=== PATIENT | male | born 1950 | race Caucasian/White ===

== ENCOUNTER → 2020-01-25 17:51 | Outpatient (CLI) | payer OTHER, SELFPAY | PROVIDERS: PCP Internal Medicine | DX: Z20.828 Contact with and (suspected) exposure to other viral communicable diseases (principal) | CPT/HCPCS: 87635; C9803; U0003 ==

== ENCOUNTER 2020-12-27 18:17 | Observation (INO) | payer MEDICARE, SELFPAY ==
[2020-12-27 18:18] VITALS: BP 133/90; PULSE 111; RESP 18; TEMP 36.9; O2SAT 95; BMI 31.8
[2020-12-27 19:15] LABS: Absolute Lymphocyte Count 1.72 X10^3/uL (0.83-4.51); Absolute Neutrophil Count 8.6 X10^3/uL (2.0-7.7); Basophil# 0.02 X10^3/uL; Basophil% 0.2 % (0-1); Eosinophil# 0.06 X10^3/uL; Eosinophils% 0.5 % (0-5); Hemoglobin 13.2 g/dL (13.0-16.5); Lymphocyte # 1.72 X10^3/ul (0.83-4.51); Lymphocyte % 15.7 % (19-41); Mean Corp Hgb Conc 34.7 g/dL (32-36); Mean Corpuscular Hgb 31.6 pg (27.0-32.0); Mean Corpuscular Volume 90.9 fL (80-94); Monocyte# 0.56 X10^3/uL; Monocyte% 5.1 % (0-10); NRBC Flagged by Analyzer 0 % (0-5); Neutrophil % 78.2 % (47-70); Platelet Count 128 K/mm3 (150-450); RBC Distribution Width CV 12.9 % (11.6-14.6); Red Blood Count 4.18 M/mm3 (4.6-6.2)
[2020-12-27 19:31] LABS: ALB/GLOB Ratio 0.9 RATIO (0.9-2.4); AST(SGOT) 17 U/L (15-37); Alanine Aminotransfer ALT/SGPT 34 U/L (16-61); Albumin, Serum 3.2 g/dL (3.2-5.0); Alkaline Phosphatase 70 U/L (45-117); Anion Gap 5 (5-15); BUN 20 mg/dL (7-18); BUN/Creat Ratio 14.8 RATIO (10-20); Calcium,Total 8.8 mg/dL (8.5-10.1); Chloride 104 mmol/L (98-107); Creatinine, Serum 1.35 mg/dL (0.70-1.30); EST Glomerular Filtration Rate 55 mL/min (>60); Est Glom Filt Rate - Afr Amer 67 mL/min (>60); Estimated Creatinine Clearance 46.92 ml/min; Globulin 3.6 g/dL (2.2-4.2); Glucose 128 mg/dL (74-106); Potassium 3.7 mmol/L (3.5-5.1); Protein, Total 6.8 g/dL (6.4-8.2); Sodium Level 137 mmol/L (136-145)
--- NOTE | 2020-12-27 19:53 | CT_ITS ---
INDICATION: abdominal pain EXAMINATION: CT Abdomen And Pelvis W/ Contrast Injection TECHNIQUE: Helically acquired images were obtained of the abdomen and pelvis after IV contrast. A radiation dose optimization technique was used for this scan. IV Contrast dosage and agent: IV 100mL [id number]-300 Oral contrast: None. COMPARISON: None. FINDINGS: Visualized lung bases: Bibasilar atelectasis. Liver: Diffusely hypodense consistent with fatty liver. Gallbladder: Unremarkable Spleen: Unremarkable Pancreas: Unremarkable Adrenal Glands: Unremarkable Kidneys: 5 mm nonobstructing stones seen in the right upper pole. 3 mm nonobstructing stone seen in the left upper pole. Vasculature: Mild scattered aortoiliac atherosclerotic calcifications. GI Tract: Scattered colonic diverticula. There is short segment circumferential wall thickening of the proximal transverse colon with surrounding mesenteric fat stranding. No focal fluid collection or free air. Lymphadenopathy: None Peritoneum: No ascites. Bladder: Unremarkable Reproductive organs: Unremarkable Bones/Soft tissues: Mild scattered degenerative changes of the visualized spine. CT/Abdomen/Pelvis W IV Cont ONLY IMPRESSION: Acute transverse colon diverticulitis. No focal fluid collection or free air. Bilateral nonobstructing nephrolithiasis. Fatty liver. Electronically Signed: Leonid Todd MD at 21:26 EDT Tel , Service support ,
--- NOTE | 2020-12-27 20:07 | ED.VIS.GI ---
HPI HPI - GI History of Present Illness Chief Complaint: Abd Pain Informant: patient Narrative Narrative: Patient is a 70-year-old male with history of diverticulitis presenting with fever and worsening abdominal pain. Patient states he is developed worsening pain in his epigastric/right right upper quadrant since last night. He has had chills and a temperature of 100.8. He is also had pain in his right shoulder. He denies any cough, shortness of breath, nausea, vomiting, diarrhea or change in his bowel movements. He is never had a colonoscopy. No other complaints at this time. [facility] Medical History (Updated 12/28/20 @ 00:[address] Damaris Knox, DO) Diverticulitis Glaucoma Gout Hyperlipidemia Seizures Home Medications allopurinol 100 mg PO DAILYCM 01/12/14 [History Last Taken 12/26/20 22:00] atorvastatin 20 mg PO QHS 01/12/14 [History Last Taken 12/26/20 22:00] brimonidine 1 drp EACH EYE DAILY 12/27/20 [History Last Taken 12/27/20 08:00] dorzolamide 1 drp EACH EYE DAILY 12/27/20 [History Last Taken 12/27/20 08:00] Allergy/AdvReac Type Severity Reaction Status Date / Time No Known Allergies Allergy Verified 12/27/20 18:20 Surgical History H/O parathyroidectomy Hx of bilateral hip replacements Social History (Updated 12/27/20 @ 21:52 by Ruthie Vasquez NP-C) Smoking Status: Never smoker alcohol intake: current alcohol intake frequency: holidays/special occasions only substance use type: does not use ROS ROS ED Constitutional Constitutional ED: Reports fever(s); Denies chills Eyes Eyes: Denies blurry vision or loss of vision ENT ENT ED: Denies rhinorrhea or sore throat Cardiovascular Cardiovascular: Denies chest pain or dizziness Respiratory/Chest Respiratory/Chest: Denies cough or dyspnea Gastrointestinal Gastrointestinal: Reports abdominal pain; Denies nausea or vomiting Genitourinary Genitourinary ED: Denies dysuria or hematuria Musculoskeletal Musculoskeletal: Denies arthralgias or myalgias Integumentary Denies rash or wounds Neurologic Neurologic: Denies focal weakness or headache(s) Psychiatric Psychiatric: Denies anxiety or behavioral changes EXAM Physical Exam Const Vital Signs: 12/27/20 18:18 Temperature 98.4 F Temperature Source Temporal Pulse Rate 111 H Respiratory Rate 18 Blood Pressure 133/90 H Blood Pressure Mean 104 Pulse Ox 95 Oxygen Delivery Method Room Air Positive well nourished and well developed General Appearance ED: well developed HEENT Reports moist mucous membranes normocephalic and atraumatic Eyes PERRL and EOMs intact bilaterally Neck supple Resp normal respiratory effort and clear to auscultation bilaterally Cardio regular rate, regular rhythm and no murmurs GI Inspection: Negative for abdominal distention Auscultation: normoactive bowel sounds Palpation: soft, tender epigastric and RUQ and guarding RUQ Back/Spine no CVA tenderness Extremity full ROM General Extremety ED: Negative for edema General Extremity: Negative for edema Neuro Sensorium / Orientation: alert Motor Exam: Negative for general weakness Psych mental status grossly normal and thought process normal Skin Lesions: no lesions Rashes: no rashes MDM MDM MDM Narrative Medical decision making narrative: Patient evaluated for about 24 hours of right upper quadrant/epigastric abdominal pain. Started off more diffuse but is localized to the right upper abdomen. Lab work is largely unremarkable. Creatinine is mildly elevated at 1.35, which is slightly above his baseline. He is given IV fluids. Patient declines pain medication. He is tachycardic upon arrival. CT shows acute transverse colon diverticulitis with no free fluid collection or free air. CT interpreted by myself is concerning for possible microperforations. Discussed with general surgery, Dr. Andrade, who does not think this is operative/surgical. Patient is admitted to the medicine service. He is given IV ciprofloxacin and Flagyl in the emergency room. Lab Data Labs: Laboratory Results - last 24 hr 12/27/20 12/27/20 12/27/20 19:03 19:03 19:03 WBC 11.0 RBC 4.18 L Hgb 13.2 Hct 38.0 L MCV 90.9 MCH 31.6 MCHC 34.7 RDW Std Deviation 42.0 RDW Coeff of Kranthi 12.9 Plt Count 128 L MPV 11.0 Immature Gran % (Auto) 0.300 Neut % (Auto) 78.2 H Lymph % (Auto) 15.7 L [place] % (Auto) 5.1 Eos % (Auto) 0.5 Baso % (Auto) 0.2 Absolute Neuts (auto) 8.6 H Absolute Lymphs (auto) 1.72 Nucleated RBC % 0 Sodium 137 Potassium 3.7 Chloride 104 Carbon Dioxide 28.0 Anion Gap 5 BUN 20 H Creatinine 1.35 H Estim Creat Clear Calc 46.92 Est GFR (MDRD) Af Amer 67 Est GFR (MDRD) Non-Af 55 L BUN/Creatinine Ratio 14.8 Glucose 128 H Calcium 8.8 Total Bilirubin 1.60 H AST 17 ALT 34 Alkaline Phosphatase 70 Total Protein 6.8 Albumin 3.2 Globulin 3.6 Albumin/Globulin Ratio 0.9 Lipase 137 Radiography Diagnostic Testing: Radiology Impression Abdomen/Pelvis CT 12/27/20 19:53 IMPRESSION: Acute transverse colon diverticulitis. No focal fluid collection or free air. Bilateral nonobstructing nephrolithiasis. Fatty liver. Electronically Signed: Leonid Todd MD at 21:26 EDT Tel , Service support , Discharge Plan Dx/Rx/DC Orders Clinical Impression: Diverticulitis Disposition Disposition: Acute Care [facility] Discharge Date/Time: 12/27/20 22:30
[2020-12-27 20:09] LABS: Lipase 137 U/L (73-393)
--- NOTE | 2020-12-27 21:47 | PCM.HP.STD ---
Documented by User: DAR Mac 12/27/20 21:59 HPI - General General Date of Admission: 12/27/20 Date of Service: 12/27/20 Chief Complaint: Abdominal pain HPI Narrative DANIELLA CLEMONS, is a 70 M who presents complaints of abdominal pain. Patient states that he had generalized abdominal pain and was seen at the [facility] where he was advised to present to the ER for evaluation for diverticulitis. Patient reports that he has had diverticulitis in the past. Patient states that he had chills and temperature as high as 100.8. Patient denies fever, cough, shortness of breath, chest pain, nausea, vomiting diarrhea, constipation. Patient states medical history includes gout, hyperlipidemia, and glaucoma. [facility] Medical History (Updated 12/27/20 @ 23:04 by Jennifer Shaffer) Diverticulitis Glaucoma Gout Hyperlipidemia Seizures Home Medications allopurinol 100 mg PO DAILYCM 01/12/14 [History Last Taken 12/26/20 22:00] atorvastatin 20 mg PO QHS 01/12/14 [History Last Taken 12/26/20 22:00] brimonidine 1 drp EACH EYE DAILY 12/27/20 [History Last Taken 12/27/20 08:00] dorzolamide 1 drp EACH EYE DAILY 12/27/20 [History Last Taken 12/27/20 08:00] Allergy/AdvReac Type Severity Reaction Status Date / Time No Known Allergies Allergy Verified 12/27/20 18:20 no significant family history Surgical History H/O parathyroidectomy Hx of bilateral hip replacements Social History (Updated 12/27/20 @ 21:52 by Ruthie Vasquez NP-C) Smoking Status: Never smoker alcohol intake: current alcohol intake frequency: holidays/special occasions only substance use type: does not use ROS Constitutional Constitutional: Reports chills and fever(s); Denies anorexia, fatigue, malaise or weakness Cardiovascular Cardiovascular: Denies chest pain, edema or palpitations Respiratory/Chest Respiratory/Chest: Denies cough, shortness of breath at rest or shortness of breath with exertion Gastrointestinal Gastrointestinal: Reports abdominal pain; Denies constipation, diarrhea, nausea or vomiting Genitourinary Genitourinary: Denies dysuria Musculoskeletal Musculoskeletal: Denies back pain, extremity pain, joint pain or joint stiffness Integumentary Integumentary: Denies dry skin Neurologic Neurologic: Denies abnormal gait, abnormal speech, confusion, dizziness or focal weakness Psychiatric Psychiatric: Denies anxiety or depression Endocrine Endocrinology: Denies change in body appearance Hematologic/Lymphatic Hematologic/Lymphatic: Denies anemia Vital Signs Vital Signs Vital Signs: 12/27/20 18:18 Temperature 98.4 F Temperature Source Temporal Pulse Rate 111 H Respiratory Rate 18 Blood Pressure 133/90 H Blood Pressure Mean 104 Pulse Ox 95 Oxygen Delivery Method Room Air Weight Weight: 203 lb 4.259 oz Body Mass Index (BMI) 31.8 Physical Exam Const alert, oriented x3 and no apparent distress General Appearance: cooperative HEENT normocephalic and head/scalp atraumatic Eyes conjunctivae normal and no scleral icterus Neck supple and no JVD General: trachea midline Resp normal respiratory effort, normal air movement and clear to auscultation bilaterally Cardio regular rate, regular rhythm, S1 normal heart sound, S2 normal heart sound and peripheral pulses 2+ throughout GI normal to inspection, nondistended, normoactive bowel sounds and soft to palpation Palpation: tender epigastric and RUQ Extremity normal capillary refill and no clubbing, cyanosis or edema General Extremity: no tenderness to palpation of joints or extremities Skin General Skin Exam: no breakdown and turgor normal Lesions: no lesions Rashes: no rashes Neuro no focal motor deficits and no sensory deficits noted Speech: speech normal Motor Exam: Negative for general weakness Psych thought process normal, cooperative and affect normal Appearance: appropriate Results Lab / Micro Data Result Diagrams: 12/27/20 19:03 12/27/20 19:03 Labs: Laboratory Results - last 24 hr 12/27/20 19:03: WBC 11.0, RBC 4.18 L, Hgb 13.2, Hct 38.0 L, MCV 90.9, MCH 31.6, MCHC 34.7, RDW Std Deviation 42.0, RDW Coeff of Kranthi 12.9, Plt Count 128 L, MPV 11.0, Immature Gran % (Auto) 0.300, Neut % (Auto) 78.2 H, Lymph % (Auto) 15.7 L, [place] % (Auto) 5.1, Eos % (Auto) 0.5, Baso % (Auto) 0.2, Absolute Neuts (auto) 8.6 H, Absolute Lymphs (auto) 1.72, Nucleated RBC % 0 12/27/20 19:03: Sodium 137, Potassium 3.7, Chloride 104, Carbon Dioxide 28.0, Anion Gap 5, BUN 20 H, Creatinine 1.35 H, Estim Creat Clear Calc 46.92, Est GFR (MDRD) Af Amer 67, Est GFR (MDRD) Non-Af 55 L, BUN/Creatinine Ratio 14.8, Glucose 128 H, Calcium 8.8, Total Bilirubin 1.60 H, AST 17, ALT 34, Alkaline Phosphatase 70, Total Protein 6.8, Albumin 3.2, Globulin 3.6, Albumin/Globulin Ratio 0.9 12/27/20 19:03: Lipase 137 Radiology Impression Abdomen/Pelvis CT 12/27/20 19:53 IMPRESSION: Acute transverse colon diverticulitis. No focal fluid collection or free air. Bilateral nonobstructing nephrolithiasis. Fatty liver. Electronically Signed: Leonid Todd MD at 21:26 EDT Tel , Service support , Assessment & Plan Assessment/Plan (1) Diverticulitis: PLAN: 1. Diverticulitis -Admit to MedSurg -Cipro and Flagyl initiated in ER, will continue -N.p.o. -Vital signs per protocol -CBC and BMP ordered daily -Due to n.p.o. status will hold home medications for gout and hyperlipidemia at this time -D5 normal saline at 100ml/hr due to n.p.o. status 2. Elevated creatinine -D5 normal saline at 100 ml/hr -Recheck BMP in a.m. DVT prophylaxis-SCDs This patient was seen by Ruthie Vasquez NP-C under the supervision of Dr. Iverson. Documented by User: Dr. Bertram Iverson MD 12/27/20 23:48 HPI - General General Date of Admission: 12/27/20 [facility] Medical History (Updated 12/27/20 @ 23:04 by Jennifer Shaffer) Diverticulitis Glaucoma Gout Hyperlipidemia Seizures Home Medications allopurinol 100 mg PO DAILYCM 01/12/14 [History Last Taken 12/26/20 22:00] atorvastatin 20 mg PO QHS 01/12/14 [History Last Taken 12/26/20 22:00] brimonidine 1 drp EACH EYE DAILY 12/27/20 [History Last Taken 12/27/20 08:00] dorzolamide 1 drp EACH EYE DAILY 12/27/20 [History Last Taken 12/27/20 08:00] Allergy/AdvReac Type Severity Reaction Status Date / Time No Known Allergies Allergy Verified 12/27/20 18:20 Surgical History H/O parathyroidectomy Hx of bilateral hip replacements Social History (Updated 12/27/20 @ 21:52 by Ruthie Vasquez, SENIOR POLICY ANALYST-C) Smoking Status: Never smoker alcohol intake: current alcohol intake frequency: holidays/special occasions only substance use type: does not use Results Lab / Micro Data Result Diagrams: 12/27/20 19:03 12/27/20 19:03 Charges/Coding Addendum Addendum: Dr. Iverson: I personally reviewed the chart and examined the patient, and agree with the above findings. 70-year-old male presented to [place] [facility] with right-sided abdominal pain. They recommended he present to the ER where he was found to have right hepatic flexure diverticulitis with possible microperforations. The was discussed between the ED and surgery who did not feel that there is any surgical need at this time. We will continue with IV fluids, n.p.o., and Cipro and Flagyl. Visit Charges Inpatient E&M: 92190 Init Hosp L2
--- NOTE | 2020-12-27 21:58 | NURSING ---
MED SURG [place] ACUTE DIVERTICULITIS
[2020-12-27] MEDS: metroNIDAZOLE 500 MG/100 ML BAG 100 MG IV (22:01)
[2020-12-27 22:03] VITALS: BP 117/77; PULSE 97; RESP 16; TEMP 36.9; O2SAT 96
[2020-12-27 22:47] VITALS: BMI 31.9
[2020-12-27 23:13] VITALS: BP 120/83; PULSE 85; RESP 20; TEMP 36.9; O2SAT 94
[2020-12-27] MEDS: Dextrose 5%/0.9% NaCl 1,000 ML 100 ML IV (23:50)
[2020-12-27] MEDS: Ciprofloxacin 400 MG/200 ML BAG 200 MG IV (23:50)
[2020-12-27 23:58] VITALS: PULSE 76
--- NOTE | 2020-12-28 01:36 | PCS.PANDOC ---
PANDEMIC DOCUMENTATION INITIATED: Date: 12/27/2020 Time: 3
[2020-12-28 05:15] VITALS: BP 124/84; PULSE 77; RESP 24; TEMP 36.9; O2SAT 97
[2020-12-28] MEDS: metroNIDAZOLE 500 MG/100 ML BAG 100 MG IV ×2 (05:27→13:51)
[2020-12-28 05:39] LABS: Absolute Lymphocyte Count 1.61 X10^3/uL (0.83-4.51); Absolute Neutrophil Count 5.9 X10^3/uL (2.0-7.7); Basophil# 0.02 X10^3/uL; Basophil% 0.2 % (0-1); Eosinophil# 0.11 X10^3/uL; Eosinophils% 1.3 % (0-5); Hemoglobin 12.1 g/dL (13.0-16.5); Lymphocyte # 1.61 X10^3/ul (0.83-4.51); Lymphocyte % 19.5 % (19-41); Mean Corp Hgb Conc 32.7 g/dL (32-36); Mean Corpuscular Hgb 30.7 pg (27.0-32.0); Mean Corpuscular Volume 93.9 fL (80-94); Monocyte# 0.56 X10^3/uL; Monocyte% 6.8 % (0-10); NRBC Flagged by Analyzer 0 % (0-5); Neutrophil # 5.92 X10^3/uL (2.7-7.7); Platelet Count 125 K/mm3 (150-450); RBC Distribution Width CV 12.8 % (11.6-14.6); RBC Distribution Width SD 44.2 fl (35.1-43.9); Red Blood Count 3.94 M/mm3 (4.6-6.2); White Blood Count 8.2 K/mm3 (4.4-11.0)
[2020-12-28 06:09] LABS: Anion Gap 5 (5-15); BUN 14 mg/dL (7-18); Calcium,Total 8.2 mg/dL (8.5-10.1); Chloride 106 mmol/L (98-107); Creatinine, Serum 0.94 mg/dL (0.70-1.30); EST Glomerular Filtration Rate 85 mL/min (>60); Est Glom Filt Rate - Afr Amer 102 mL/min (>60); Estimated Creatinine Clearance 67.39 ml/min; Glucose 134 mg/dL (74-106); Potassium 3.7 mmol/L (3.5-5.1); Sodium Level 137 mmol/L (136-145)
--- NOTE | 2020-12-28 07:21 | EX.PCM.CON.S ---
Assessment & Plan Assessment/Plan (1) Diverticulitis: PLAN: Patient has diverticulitis of the hepatic flexure. His pain is improving and he reports minimal pain this morning. Given the extent and inflammation I would recommend another day of n.p.o. and IV fluids with IV antibiotics. I will give him sips and chips. If his pain resolves tomorrow he may be started on a diet. Patient will need outpatient colonoscopy following episode. Ridge Andrade MD Pager: [phone] [address] [place] [address] Outpatient [place], [address] [place] [address] Office: HPI Consult Data Date of Consult: 12/28/20 HPI Narrative HPI Narrative: DANIELLA CLEMONS, is a 70 M who presents with right upper quadrant pain. Patient has no history of diverticulitis. Patient reports no fevers or chills. This morning the patient feels much better and says that his pain is decreasing rapidly [facility] Medical History (Updated 12/28/20 @ 00:[address] Damaris Knox, DO) Diverticulitis Glaucoma Gout Hyperlipidemia Seizures Home Medications allopurinol 100 mg PO DAILYCM 01/12/14 [History Last Taken 12/26/20 22:00] atorvastatin 20 mg PO QHS 01/12/14 [History Last Taken 12/26/20 22:00] brimonidine 1 drp EACH EYE DAILY 12/27/20 [History Last Taken 12/27/20 08:00] dorzolamide 1 drp EACH EYE DAILY 12/27/20 [History Last Taken 12/27/20 08:00] Allergy/AdvReac Type Severity Reaction Status Date / Time No Known Allergies Allergy Verified 12/27/20 18:20 Surgical History H/O parathyroidectomy Hx of bilateral hip replacements Social History (Updated 12/27/20 @ 21:52 by Ruthie Vasquez NP-C) Smoking Status: Never smoker alcohol intake: current alcohol intake frequency: holidays/special occasions only substance use type: does not use ROS Constitutional Constitutional: Denies anorexia, chills or fatigue Eyes Eyes: Denies blurry vision Cardiovascular Cardiovascular: Denies chest pain Respiratory/Chest Respiratory/Chest: Denies cough or dyspnea Gastrointestinal Gastrointestinal: Reports abdominal pain; Denies diarrhea, hematemesis, melena, nausea, rectal bleeding or vomiting Genitourinary Genitourinary: Denies dysuria Musculoskeletal Musculoskeletal: Denies joint pain Integumentary Integumentary: Denies rash Neurologic Neurologic: Denies loss of vision Psychiatric Psychiatric: Denies anxiety Endocrine Endocrinology: Denies flushing Hematologic/Lymphatic Hematologic/Lymphatic: Denies easy bleeding Physical Exam Const alert and oriented x3 HEENT normocephalic Eyes PERRL Resp normal respiratory effort Cardio Rate: regular rate Rhythm: regular rhythm GI soft to palpation Palpation: tender RUQ Extremity normal to inspection Skin General Skin Exam: no breakdown Neuro CN's II-XII intact bilaterally Psych mental status grossly normal Lab / Micro Data Result Diagrams: 12/28/20 05:10 12/28/20 05:10 Labs: Laboratory Results - last 24 hr 12/27/20 19:03: WBC 11.0, RBC 4.18 L, Hgb 13.2, Hct 38.0 L, MCV 90.9, MCH 31.6, MCHC 34.7, RDW Std Deviation 42.0, RDW Coeff of Kranthi 12.9, Plt Count 128 L, MPV 11.0, Immature Gran % (Auto) 0.300, Neut % (Auto) 78.2 H, Lymph % (Auto) 15.7 L, [place] % (Auto) 5.1, Eos % (Auto) 0.5, Baso % (Auto) 0.2, Absolute Neuts (auto) 8.6 H, Absolute Lymphs (auto) 1.72, Nucleated RBC % 0 12/27/20 19:03: Sodium 137, Potassium 3.7, Chloride 104, Carbon Dioxide 28.0, Anion Gap 5, BUN 20 H, Creatinine 1.35 H, Estim Creat Clear Calc 46.92, Est GFR (MDRD) Af Amer 67, Est GFR (MDRD) Non-Af 55 L, BUN/Creatinine Ratio 14.8, Glucose 128 H, Calcium 8.8, Total Bilirubin 1.60 H, AST 17, ALT 34, Alkaline Phosphatase 70, Total Protein 6.8, Albumin 3.2, Globulin 3.6, Albumin/Globulin Ratio 0.9 12/27/20 19:03: Lipase 137 12/28/20 05:10: WBC 8.2, RBC 3.94 L, Hgb 12.1 L, Hct 37.0 L, MCV 93.9, MCH 30.7, MCHC 32.7 D, RDW Std Deviation 44.2 H, RDW Coeff of Kranthi 12.8, Plt Count 125 L, MPV 11.0, Immature Gran % (Auto) 0.200, Neut % (Auto) 72.0 H, Lymph % (Auto) 19.5, [place] % (Auto) 6.8, Eos % (Auto) 1.3, Baso % (Auto) 0.2, Absolute Neuts (auto) 5.9, Absolute Lymphs (auto) 1.61, Nucleated RBC % 0 12/28/20 05:10: Sodium 137, Potassium 3.7, Chloride 106, Carbon Dioxide 26.0, Anion Gap 5, BUN 14, Creatinine 0.94, Estim Creat Clear Calc 67.39, Est GFR (MDRD) Af Amer 102, Est GFR (MDRD) Non-Af 85, BUN/Creatinine Ratio 15.0, Glucose 134 H, Calcium 8.2 L Radiology Impression Abdomen/Pelvis CT 12/27/20 19:53 IMPRESSION: Acute transverse colon diverticulitis. No focal fluid collection or free air. Bilateral nonobstructing nephrolithiasis. Fatty liver. Electronically Signed: Leonid Todd MD at 21:26 EDT Tel , Service support ,
[2020-12-28 08:30] VITALS: BP 113/71; PULSE 73; RESP 20; TEMP 36.9; O2SAT 94
[2020-12-28] MEDS: Ciprofloxacin 400 MG/200 ML BAG 200 MG IV (10:27)
--- NOTE | 2020-12-28 12:00 | CASEMGMT ---
CELSA LIGHT Face to Face with patient for initial transition planning/care coordination assessment. RN CM introduced self and role at [facility]. Patient lying in bed, alert and oriented. Patient willing to participate in assessment and is able to answer all questions appropriately. Care providers, pharmacy, and demographics verified. Patient wishes to discharge home, denies need for home health at this time. Patient states he has no further needs or concerns at this time. CM to follow for discharge planning needs that may arise. PCP: Angelica Specialists: none Preferred Pharmacy: [facility] Insurance: [employer] [facility] Prescription Benefit: yes Living Will/HPOA: yes, Kale Morales LNOK: Living Arrangements: Patient lives with in a two story home with bed and bath on first floor. Patient is independent at home. Transportation: self/daughter DME/HHC: Patient states he has built in shower chair, raised toilet, cane, and walker at home. Patient denies previous HHC. Disposition Plan: Patient to discharge home with family support and follow-up plans in place. Peg KING, RN, CM
[2020-12-28] MEDS: Dextrose 5%/0.9% NaCl 1,000 ML 100 ML IV (13:00)
[2020-12-28 14:19] VITALS: BP 98/66; PULSE 72; RESP 16; TEMP 37.1; O2SAT 96
[2020-12-28 14:26] VITALS: BP 98/66; PULSE 72; RESP 16; TEMP 37.1; O2SAT 96
--- NOTE | 2020-12-28 14:35 | PCM.DC.SUM ---
Providers Date of Admission: 12/27/20 Primary Care Physician: Dr. Jante Dominguez MD Reason For Visit: DIVERTICULITIS Diagnosis Discharge Diagnosis (1) Diverticulitis: Status: Acute Code(s): K57.92 - Diverticulitis of intestine, part unspecified, without perforation or abscess without bleeding Medications at Discharge Home Medications allopurinol 100 mg PO DAILYCM 01/12/14 atorvastatin 20 mg PO QHS 01/12/14 brimonidine 1 drp EACH EYE DAILY 12/27/20 dorzolamide 1 drp EACH EYE DAILY 12/27/20 ciprofloxacin HCl 500 mg PO BID #20 tab 12/28/20 metronidazole 500 mg PO TID #30 tab 12/28/20 Hospital Course Operations None Procedures None Summary of Care Provided Minutes Spent on Discharge: 35 Hospital Course: Patient is a 70-year-old male with past medical history as outlined was admitted through the ED on 12/27/2020 with a complaint of abdominal pain which was generalized. He had gone to see his PCP and was advised to come into the ED on account of concerns for diverticulitis. Patient said he had chills with temperature as high as 100.8 Fahrenheit. He denied any nausea vomiting or diarrhea but did state that he had eaten a meal which contained poppy seeds 2 days prior to his symptoms started he believe that was the cause of his symptoms. Patient's abdominal pain completely resolved and was able to tolerate a diet on 12/28/2020. Patient felt much better and requested to be discharged home as he preferred to follow-up with general surgery on outpatient basis. Of note, general surgery was also consulted during this admission. Patient felt much better and insisted on being discharged home. General surgery advised the patient could do with 1 more day of bowel rest. Patient however felt that he could do this bowel rest at home as he felt very well and had tolerated clear liquids while he was in the hospital. Patient was therefore counseled extensively that he should do bowel rest at home until 12/29/2020 and if he felt better, can start on clear liquids and stay on clear liquids for at least 2 to 3 days and to advance slowly to full liquids and then on to soft diet and further as tolerated. He was counseled to come back to the emergency room or call his PCP if the pain worsened. Of note, patient's white cell count was not elevated and he was afebrile as well. Patient was discharged on 12/28/2020 to continue on a full liquid diet and follow-up with general surgery within 1 week. He was discharged on p.o. ciprofloxacin and metronidazole for 10-day course. Patient seen and examined prior to discharge. He felt well and had no complaints. Review of systems otherwise negative. Labs and vitals reviewed. Home medication reviewed and reconciled. Physical Exam Const alert, oriented x3 and no apparent distress General Appearance: cooperative and comfortable Exam Limitations: no limitations HEENT normocephalic, head/scalp atraumatic, hearing grossly normal bilaterally and moist oral mucous membranes Eyes PERRL, EOMs intact bilaterally and conjunctivae normal Neck no lymphadenopathy Resp normal respiratory effort, no retractions, no use of accessory muscles and clear to auscultation bilaterally Cardio regular rate, regular rhythm, S1 normal heart sound, S2 normal heart sound and no murmurs GI normal to inspection, nondistended, normoactive bowel sounds, soft to palpation, non-tender and non-distended Extremity normal to inspection, full ROM and no clubbing, cyanosis or edema Skin no rashes or lesions noted and no wounds Neuro oriented x3, CN's II-XII intact bilaterally and moves all extremities Sensorium / Orientation: awake and alert Psych affect normal Weight / BMI Weight Weight: 204 lb 2.369 oz Body Mass Index (BMI) 31.9 ABG / Lab / Microbiology Data Result Diagrams: 12/28/20 05:10 12/28/20 05:10 Laboratory: Laboratory Results - last 24 hr 12/27/20 19:03: WBC 11.0, RBC 4.18 L, Hgb 13.2, Hct 38.0 L, MCV 90.9, MCH 31.6, MCHC 34.7, RDW Std Deviation 42.0, RDW Coeff of Kranthi 12.9, Plt Count 128 L, MPV 11.0, Immature Gran % (Auto) 0.300, Neut % (Auto) 78.2 H, Lymph % (Auto) 15.7 L, [place] % (Auto) 5.1, Eos % (Auto) 0.5, Baso % (Auto) 0.2, Absolute Neuts (auto) 8.6 H, Absolute Lymphs (auto) 1.72, Nucleated RBC % 0 12/27/20 19:03: Sodium 137, Potassium 3.7, Chloride 104, Carbon Dioxide 28.0, Anion Gap 5, BUN 20 H, Creatinine 1.35 H, Estim Creat Clear Calc 46.92, Est GFR (MDRD) Af Amer 67, Est GFR (MDRD) Non-Af 55 L, BUN/Creatinine Ratio 14.8, Glucose 128 H, Calcium 8.8, Total Bilirubin 1.60 H, AST 17, ALT 34, Alkaline Phosphatase 70, Total Protein 6.8, Albumin 3.2, Globulin 3.6, Albumin/Globulin Ratio 0.9 12/27/20 19:03: Lipase 137 12/28/20 05:10: WBC 8.2, RBC 3.94 L, Hgb 12.1 L, Hct 37.0 L, MCV 93.9, MCH 30.7, MCHC 32.7 D, RDW Std Deviation 44.2 H, RDW Coeff of Kranthi 12.8, Plt Count 125 L, MPV 11.0, Immature Gran % (Auto) 0.200, Neut % (Auto) 72.0 H, Lymph % (Auto) 19.5, [place] % (Auto) 6.8, Eos % (Auto) 1.3, Baso % (Auto) 0.2, Absolute Neuts (auto) 5.9, Absolute Lymphs (auto) 1.61, Nucleated RBC % 0 12/28/20 05:10: Sodium 137, Potassium 3.7, Chloride 106, Carbon Dioxide 26.0, Anion Gap 5, BUN 14, Creatinine 0.94, Estim Creat Clear Calc 67.39, Est GFR (MDRD) Af Amer 102, Est GFR (MDRD) Non-Af 85, BUN/Creatinine Ratio 15.0, Glucose 134 H, Calcium 8.2 L Radiography Diagnostic Testing: Radiology Impression Abdomen/Pelvis CT 12/27/20 19:53 IMPRESSION: Acute transverse colon diverticulitis. No focal fluid collection or free air. Bilateral nonobstructing nephrolithiasis. Fatty liver. Electronically Signed: Leonid Todd MD at 21:26 EDT Tel , Service support , D/C Instructions Discharge Diet: - (full liquid diet, and advance as tolerated.) Discharge Activity: Return to Normal Activity Weight Bearing Status: Weight bearing as tolerated Call your doctor if you observe: Fever of 101 or Higher, Shortness of breath, Increased palpitations (irregular heartbeat) and Uncontrolled pain Meaningful Use Info Meaningful Use Diagnoses (Choose all that apply): None applicable Discharge Plan Admission Admit Date/Time: 12/27/20 21:30 Primary Reason for Your Visit: acute diverticulitis Attending Provider: Sis Mackey Primary Care Provider: Janet Dominguez Instructions Additional Instructions / Restrictions: to have bowel rest overnight, and to start on clears tomorrow if he feels able to. Stay on clear liquids for 2-3 days to allow colon to heal, and then advance slowly to full liquid diet, then on to soft diet and regular diet as tolerated. To call Dr Andrade's office for appointment as soon as possible, preferably within one week. Discharge Orders/Prescriptions Prescriptions: New metronidazole 500 mg tablet 500 mg PO TID Qty: 30 RF: 0 ciprofloxacin HCl 500 mg tablet 500 mg PO BID Qty: 20 RF: 0 Continued atorvastatin 20 MG tablet 20 mg PO QHS RF: 0 allopurinol 100 MG tablet 100 mg PO DAILYCM RF: 0 brimonidine 0.2 % drops 1 drp EACH EYE DAILY RF: 0 dorzolamide 2 % drops 1 drp EACH EYE DAILY RF: 0 Referrals / Follow Up: Ridge Andrade MD [STAFF PHYSICIAN] - Within 1 Week Janet Dominguez MD [Primary Care Provider] - Within 1 Week Disposition Disposition (needs filled in before D/C Order can be placed): Home, Self Care Charges/Coding Visit Charges Inpatient E&M: 22767 Disch Hosp
== END 2020-12-28 16:00 | disposition home or self-care (01) | DRG 392 ==
LOC: ED 20:07 → MS3 12-28 07:23
PROVIDERS: Admitting Provider Family Medicine; Emergency Provider Emergency Medicine; PCP Internal Medicine; Visit Provider Student in an Organized Health Care Education/Training Program
DX: K57.32 Diverticulitis of large intestine without perforation or abscess without bleeding (principal); M10.9 Gout, unspecified; E78.5 Hyperlipidemia, unspecified; H40.9 Unspecified glaucoma; Z79.899 Other long term (current) drug therapy
CPT/HCPCS: 36415; 74177; 80048; 80053; 83690; 85025; 96361; 96365; 96366; 96367; 99218; 99285; J7030; Q9967; G0378; J0744

== ENCOUNTER 2023-12-04 09:48 | Emergency (ER) | payer MEDICARE, SELFPAY ==
[2023-12-04 09:49] VITALS: BP 116/89; PULSE 51; RESP 14; TEMP 36.3; O2SAT 97
--- NOTE | 2023-12-04 09:54 | CT_ITS ---
STUDY: CT ABDOMEN AND PELVIS WITHOUT CONTRAST REASON FOR EXAM: Male, 73 years old. Left-sided flank pain RADIATION DOSAGE (If Supplied By Facility): CTDIvol = ( 17.48 ) mGy, DLP = ( 862.66 ) mGycm TECHNIQUE: Transaxial images were obtained from the dome of the diaphragm to the symphysis pubis without oral contrast, and without intravenous contrast. Sagittal and coronal images were reconstructed. Individualized dose optimization techniques were used for this CT. COMPARISON: 2020 FINDINGS: The visualized lung bases are unremarkable. The visualized portions of the heart are within normal limits. Normal liver. Normal gallbladder and extrahepatic biliary system. Normal spleen. Normal pancreas. There is a stable 1.3 cm circumscribed, smooth, low attenuation left adrenal mass, consistent with an adrenal adenoma. Normal right adrenal gland. There is mild right hydronephrosis and hydroureter. Findings are due to a 5.5 mm stone in the proximal right ureter seen on axial image 53, and coronal reconstructed image 60. The right ureter distal to the stone is of normal course and caliber. The left kidney shows mild hydronephrosis without hydroureter though there is perinephric and periureteral inflammatory stranding. No obstructing stone is noted. Findings could be due to recent passage of a stone or nonradiopaque stone. There is a nonobstructing 5 mm stone in the upper pole of the left kidney. Neither kidney shows evidence of a solid mass lesion. Normal visualized stomach. Normal small intestine. Retained stool in the colon with scattered colonic diverticula, no CT evidence of acute diverticulitis. The appendix is visualized and appears normal. The appendix is seen on coronal recon images 49 through 62 Normal abdominal aorta. Normal inferior vena cava. Normal retroperitoneum. Normal urinary bladder. There is a right-sided inguinal hernia containing adipose tissue. Degenerative bony changes noted in the lumbar spine. Patient has bilateral hip replacements that are free of complication CT/Abdomen/Pelvis without Cont IMPRESSION: Right-sided hydronephrosis and hydroureter due to a 5.5 mm stone in the proximal third of the right ureter and images described above. Mild left hydronephrosis without hydroureter there is a minimal amount of perinephric and periureteral inflammatory stranding suggesting perhaps recent passage of a stone. There is no obstructing stone noted in the left ureter Nonobstructing 5 mm left renal stone Stable 1.3 cm left adrenal adenoma Retained stool in the colon with scattered colonic diverticula, no CT evidence of acute diverticulitis Electronically Signed: Naveen Gil MD at 11:06 EDT ,
--- NOTE | 2023-12-04 09:55 | EX.ED.DYSGE1 ---
HPI History of Present Illness Chief Complaint: Back Detail of Chief Complaint: Left flank pain that awoke him from sleep at 0500 Informant: patient Onset/Context/Timing Onset: Today Context: Sudden Onset Timing: Continuous and Waxes and wanes Quality: Pain Location: Left flank that radiates anteriorly Current Severity: Moderate Maximum Severity: Severe Worsened by: Nothing Relieved by: Better with hot shower Associated Symptoms Associated Symptoms: None Narrative Narrative: patient is a 73-year-old male with history of hypercholesterolemia and glaucoma. He has no known history of kidney disease. His recent BMP he was 2020 and BUN and creatinine were normal. Patient denies fever, chills night sweats. Patient denies dysuria, frequency, urgency or hematuria. Patient denies history of renal or ureterolithiasis. Patient denies history of trauma. Patient states he cannot find a position of comfort. This pain awoke him from sleep at 0500. Pain has been persistent since onset. When patient saw his physician he was complaining of lower quadrant pain. He was placed on ciprofloxacin and metronidazole for presumed diverticulitis. He has had diverticulitis in the past. This pain is different. Prior similar symptoms: No Recent Illness/[facility]: [facility] Medical History Seizures Gout Hyperlipidemia Glaucoma Diverticulitis Home Medications ?Medication ?Instructions ?Recorded ?Last Taken ?Type allopurinol 100 mg tablet 100 mg PO DAILYCM gout 01/12/14 12/26/20 22:00 History atorvastatin 20 mg tablet 20 mg PO QHS cholesterol 01/12/14 12/26/20 22:00 History brimonidine 0.2 % eye drops 1 drp EACH EYE DAILY glaucoma 12/27/20 12/27/20 08:00 History dorzolamide 2 % eye drops 1 drp EACH EYE DAILY glaucoma 12/27/20 12/27/20 08:00 History ciprofloxacin HCl 500 mg tablet 500 mg PO BID #20 tabs 12/28/20 Unknown Rx metronidazole 500 mg tablet 500 mg PO TID #30 tabs 12/28/20 Unknown Rx cephalexin 500 mg capsule 500 mg PO Q6 #40 CAPSULES 12/04/23 Unknown Rx Allergy/AdvReac Type Severity Reaction Status Date / Time No Known Allergies Allergy Verified 12/04/23 09:48 Surgical History H/O parathyroidectomy Hx of bilateral hip replacements Social History (Updated 12/04/23 @ 09:[address] Manuel Bernard MD) household members: spouse Smoking Status: Never smoker alcohol intake: current alcohol intake frequency: holidays/special occasions only substance use type: does not use ROS ROS ED Constitutional Constitutional ED: Denies chills, fever(s), subjective or sweats Eyes Eyes: Denies blurry vision or change in vision ENT ENT ED: Denies rhinorrhea or sore throat Cardiovascular Cardiovascular: Denies chest pain or palpitations Respiratory/Chest Respiratory/Chest: Denies cough or dyspnea Gastrointestinal Gastrointestinal: Reports abdominal pain; Denies constipation, diarrhea, melena or vomiting Genitourinary Genitourinary ED: Denies dysuria, hematuria or urinary frequency Musculoskeletal Musculoskeletal: Denies arthralgias, back pain, myalgias or neck pain Integumentary Denies rash Endocrine Endocrinology: Denies cold intolerance or heat intolerance Hematologic/Lymphatic Hematologic/Lymphatic: Reports systems reviewed and no addt'l complaints, except as documented EXAM Physical Exam Const Vital Signs: 12/04/23 09:49 Temperature 97.4 F L Temperature Source Temporal Pulse Rate 51 L Respiratory Rate 14 Blood Pressure 116/89 H Blood Pressure Mean 98 Pulse Ox 97 Oxygen Delivery Method Room Air Positive well nourished and well developed Constitutional Narrative: Patient appears in slight discomfort. Vitals reveal slight elevation in blood pressure and heart rate of 51. General Appearance ED: well developed; Negative for pallor HEENT Reports moist mucous membranes HEENT Narrative: Head is atraumatic and normocephalic. Ears normal. Eyes PERRL and EOMs intact bilaterally General Eye ED: Negative for scleral icterus Neck no lymphadenopathy and supple Chest Wall inspection of chest normal and palpation of chest normal Resp normal respiratory effort and clear to auscultation bilaterally Cardio regular rhythm, S1 normal heart sound, S2 normal heart sound and no murmurs Rate: bradycardia GI normal to inspection, nondistended, normoactive bowel sounds, non-tender, non-distended and no masses; Negative for hepatosplenomegaly Back/Spine no CVA tenderness Extremity normal to inspection Neuro oriented x3 and CN's II-XII intact bilaterally Sensorium / Orientation: alert Psych mental status grossly normal Skin no rashes or lesions noted and no wounds General Skin Exam: Negative for jaundice or pallor MDM MDM MDM Narrative Medical decision making narrative: With abrupt onset of flank pain that awoke him from sleep and unable to find position of comfort suspect patient has obstructing ureteral stone. Also in the differential would be aortic aneurysm, aortic dissection, doubt musculoskeletal since is not reproducible and not made worse with bending the right or left. Lab Data Attestation: I reviewed the patient's lab results. Lab results narrative: White count is normal. Basic metabolic panel reveals a glucose of 145 with a normal CO2 and anion gap. Labs: Laboratory Results - last 24 hr 12/04/23 12/04/23 10:00 11:05 WBC 9.5 RBC 4.30 L Hgb 13.2 Hct 40.7 MCV 94.7 H MCH 30.7 MCHC 32.4 RDW Std Deviation 44.8 H RDW Coeff of Kranthi 13.0 Plt Count 159 MPV 10.4 Immature Gran % (Auto) 0.300 Neut % (Auto) 82.3 H Lymph % (Auto) 12.3 L [place] % (Auto) 4.4 Eos % (Auto) 0.4 Baso % (Auto) 0.3 Absolute Neuts (auto) 7.8 H Absolute Lymphs (auto) 1.17 Nucleated RBC % 0 Sodium 141 Potassium 3.8 Chloride 109 H Carbon Dioxide 26.0 Anion Gap 6 BUN 15 Creatinine 1.25 Estim Creat Clear Calc 54.63 Est GFR (MDRD) Af Amer 73 Est GFR (MDRD) Non-Af 60 BUN/Creatinine Ratio 12.0 Glucose 145 H Calcium 9.2 Urine Color Yellow Urine Clarity Clear Urine pH 5.0 Ur Specific [place] 1.030 Urine Protein 30 H Urine Glucose (UA) Normal Urine Ketones 5 H Urine Occult Blood 25 H Urine Nitrite Positive H Urine Bilirubin Negative Urine Urobilinogen 1 H Ur Leukocyte Esterase 25 H Urine RBC 0-5 SEEN Urine WBC 0-5 SEEN Ur Squamous Epith Cells 0-5 SEEN Ur Transition Epith Cell 0-5 SEEN Urine Bacteria 1+ Urine Mucus 3+ Radiography Diagnostic Testing: Clinical Impression(s) from Imaging Studies Abdomen/Pelvis CT 12/04/23 09:54 IMPRESSION: Right-sided hydronephrosis and hydroureter due to a 5.5 mm stone in the proximal third of the right ureter and images described above. Mild left hydronephrosis without hydroureter there is a minimal amount of perinephric and periureteral inflammatory stranding suggesting perhaps recent passage of a stone. There is no obstructing stone noted in the left ureter Nonobstructing 5 mm left renal stone Stable 1.3 cm left adrenal adenoma Retained stool in the colon with scattered colonic diverticula, no CT evidence of acute diverticulitis Electronically Signed: Naveen Gil MD at 11:06 EDT Reading Location ID and State: [facility] / [place] , Service support , Treatment and Re-Evaluation :: Patient was informed of his blood work and CAT scan results. Patient is presently pain-free. Patient's urine reveals bacteria. Will send culture. Will place on antibiotics. He was referred to Dr. Douglass since he still has an obstructing right ureteral stone. Discharge Plan Triage Chief Complaint: Back ED Provider: Manuel Bernard Dx/Rx/DC Orders Clinical Impression: Hydronephrosis with urinary obstruction due to ureteral calculus, Renal calculus, left, Left flank pain, Bacteria in urine, Hydronephrosis of left kidney Instructions: ED Kidney Stone, Passed, ED Kidney Stone with Pain Prescriptions: New cephalexin 500 mg capsule 500 mg PO Q6 Qty: 40 0RF No Action atorvastatin 20 MG tablet 20 mg PO QHS allopurinol 100 MG tablet 100 mg PO DAILYCM brimonidine 0.2 % drops 1 drp EACH EYE DAILY Patient Comments: 1 drop in both eyes twice a day dorzolamide 2 % drops 1 drp EACH EYE DAILY metronidazole 500 mg tablet 500 mg PO TID Qty: 30 0RF ciprofloxacin HCl 500 mg tablet 500 mg PO BID Qty: 20 0RF Primary Care Provider: Janet Dominguez Referrals: Shane Douglass MD [Med Staff - Active Staff] - 3-5 Days Janet Dominguez MD [Primary Care Provider] - Print Language: Russian Disposition Disposition: Home, Self Care
[2023-12-04] MEDS: Ondansetron 4 MG/2 ML Vial IV (10:02)
[2023-12-04] MEDS: Ketorolac 15 MG/ML Vial IV (10:02)
[2023-12-04] MEDS: 0.9% Normal Saline (1000mL) 1,000 ML 250 ML IV (10:02)
[2023-12-04 10:06] LABS: Absolute Lymphocyte Count 1.17 X10^3/uL (0.83-4.51); Absolute Neutrophil Count 7.8 X10^3/uL (2.0-7.7); Basophil# 0.03 X10^3/uL; Basophil% 0.3 % (0-1); Eosinophil# 0.04 X10^3/uL; Eosinophils% 0.4 % (0-5); Hematocrit 40.7 % (40-54); Hemoglobin 13.2 g/dL (13.0-16.5); Lymphocyte # 1.17 X10^3/ul (0.83-4.51); Lymphocyte % 12.3 % (19-41); Mean Corp Hgb Conc 32.4 g/dL (32-36); Mean Corpuscular Hgb 30.7 pg (27.0-32.0); Mean Corpuscular Volume 94.7 fL (80-94); Mean Platelet Vol. 10.4 fl (6.2-12.0); Monocyte# 0.42 X10^3/uL; Monocyte% 4.4 % (0-10); NRBC Flagged by Analyzer 0 % (0-5); Neutrophil # 7.82 X10^3/uL (2.7-7.7); Neutrophil % 82.3 % (47-70); Platelet Count 159 K/mm3 (150-450); RBC Distribution Width SD 44.8 fl (35.1-43.9); White Blood Count 9.5 K/mm3 (4.4-11.0)
[2023-12-04 10:18] LABS: Anion Gap 6 (5-15); BUN 15 mg/dL (7-18); Calcium,Total 9.2 mg/dL (8.5-10.1); Chloride 109 mmol/L (98-107); Creatinine, Serum 1.25 mg/dL (0.70-1.30); EST Glomerular Filtration Rate 60 mL/min (>60); Est Glom Filt Rate - Afr Amer 73 mL/min (>60); Estimated Creatinine Clearance 54.63 ml/min; Glucose 145 mg/dL (74-106); Potassium 3.8 mmol/L (3.5-5.1); Sodium Level 141 mmol/L (136-145)
[2023-12-04 11:22] LABS: Color, Urine Yellow (Yellow); Glucose, Dipstick Normal (Normal); Ketone-Dipstick 5 mg/dl (Negative); Leukocyte Esterase-Dipstick 25 /ul (Negative); Nitrite-Dipstick Positive (Negative); Occult Blood-Urine 25 /ul (Negative); Protein-Dipstick 30 mg/dl (Negative); Urine Bilirubin Dipstick Negative (Negative); Urine Clarity Clear (Clear); Urine Urobilinogen 1 mg/dl (Normal)
[2023-12-04 11:30] LABS: Red Blood Cells-Urine 0-5 SEEN /hpf (0-5); Squamous Epithelial Cells - UA 0-5 SEEN /hpf (0-5); White Blood Cells 0-5 SEEN /hpf (0-5)
[2023-12-04 11:31] LABS: Bacteria 1+ /hpf (None Seen); Mucous, Urine 3+ /hpf (<or=2+); Transitional Epithelial - Ur 0-5 SEEN /hpf (0-5)
[2023-12-04] MEDS: Cephalexin 500 MG Capsule PO (11:49)
== END 2023-12-04 11:55 | disposition home or self-care (01) ==
PROVIDERS: Emergency Provider Emergency Medicine; PCP Internal Medicine; Visit Provider Emergency Medicine
DX: N13.2 Hydronephrosis with renal and ureteral calculous obstruction (principal)
CPT/HCPCS: 74176; 80048; 81001; 85025; 87086; 96374; 96375; 96376; 99284; J7030; A4216; J2405

== ENCOUNTER → 2023-12-11 | Outpatient (CLI) | payer MEDICARE, SELFPAY ==
[2023-12-11 10:24] LABS: Hematocrit 43.7 % (40-54); Hemoglobin 14.1 g/dL (13.0-16.5); Mean Corp Hgb Conc 32.3 g/dL (32-36); Mean Corpuscular Hgb 30.5 pg (27.0-32.0); Mean Corpuscular Volume 94.6 fL (80-94); Mean Platelet Vol. 10.7 fl (6.2-12.0); Platelet Count 192 K/mm3 (150-450); RBC Distribution Width CV 12.8 % (11.6-14.6); RBC Distribution Width SD 44.3 fl (35.1-43.9); Red Blood Count 4.62 M/mm3 (4.6-6.2); White Blood Count 6.7 K/mm3 (4.4-11.0)
[2023-12-11 11:33] LABS: Anion Gap 6 (5-15); BUN 19 mg/dL (7-18); BUN/Creat Ratio 17.8 RATIO (10-20); Calcium,Total 9.9 mg/dL (8.5-10.1); Chloride 107 mmol/L (98-107); Creatinine, Serum 1.07 mg/dL (0.70-1.30); EST Glomerular Filtration Rate 72 mL/min (>60); Est Glom Filt Rate - Afr Amer 87 mL/min (>60); Glucose 114 mg/dL (74-106); Potassium 4.6 mmol/L (3.5-5.1); Sodium Level 139 mmol/L (136-145)
== END | disposition home or self-care (01) ==
PROVIDERS: PCP Internal Medicine; Referring Provider Urology; Visit Provider Urology
DX: Z01.810 Encounter for preprocedural cardiovascular examination (principal)
CPT/HCPCS: 36415; 80048; 85027; 93005

== ENCOUNTER → 2023-12-24 | Outpatient (CLI) | payer MEDICARE, SELFPAY ==
--- NOTE | 2023-12-24 10:14 | RAD_ITS ---
STUDY: X-RAY - ABDOMEN/PELVIS REASON FOR EXAM: Male, 73 years old. KIDNEY STONE TECHNIQUE: Single AP view of the abdomen / pelvis. COMPARISON: None. FINDINGS: There is an unremarkable bowel gas pattern. The visualized liver, spleen and kidneys are grossly normal in size and morphology. 4 mm calcific opacity overlying the left kidney worrisome for left renal stone. 5 mm calcific opacity projecting over the right transverse process of L3 which may represent a right ureteral stone. Normal soft tissue structures. Mild levoscoliosis lumbar spine with degenerative disc disease. Status post bilateral hip arthroplasty. RAD/Abdomen Single View IMPRESSION: Possible right ureteral stone and possible left renal stone. CT may be useful. Electronically Signed: Theo Da Silva MD at 9:29 EDT ,
== END | disposition home or self-care (01) ==
PROVIDERS: PCP Internal Medicine; Referring Provider Urology; Visit Provider Urology
DX: N20.0 Calculus of kidney (principal)
CPT/HCPCS: 74018

== ENCOUNTER 2024-06-27 16:08 | Emergency (ER) | payer MEDICARE, SELFPAY ==
[2024-06-27 16:08] VITALS: BP 146/79; PULSE 86; RESP 15; TEMP 36.7; O2SAT 99; BMI 30.5
--- NOTE | 2024-06-27 16:40 | CT_ITS ---
PROCEDURE: CT abdomen pelvis without IV contrast REASON FOR EXAM: Left flank pain TECHNIQUE: Multiple contiguous axial images of the abdomen and pelvis were obtained without the administration of intravenous contrast. Two-dimensional coronal and sagittal reformatted images were reconstructed. Low-dose imaging technique was utilized. COMPARISON: 12/04/2023 FINDINGS: Lung bases are clear. Mild cardiomegaly. Unenhanced liver, spleen, pancreas and right adrenal gland are intact. Stable subcentimeter left adrenal nodule. Gallbladder is satisfactory. No significant biliary ductal dilation. Left-sided obstructive uropathy with a 6 mm calculus at the ureterovesicular junction resulting in mild hydroureteronephrosis as well as mild perinephric/periureteric fat stranding. No renal calculi or right hydronephrosis. Mild diffuse bladder wall thickening. Colonic diverticulosis. No bowel obstruction, focal bowel wall thickening or significant perienteric inflammation. Normal appendix. No pelvic free fluid. No free air. No abdominal aortic aneurysm or suspicious adenopathy. Small bilateral fat containing inguinal hernias. No acute osseous abnormality. Degenerative changes of the spine. Bilateral hip prostheses. CT/Abdomen/Pelvis without Cont IMPRESSION: Left-sided obstructive uropathy as above. One or more dose reduction techniques were used (e.g., Automated exposure contr ol, adjustment of the mA and/or kV according to patient size, use of iterative reconstruction technique). Reading Location: [facility]
--- NOTE | 2024-06-27 16:42 | EDS_ITS ---
HPI <LYNN Cleaning - Last Filed: 06/27/24 18:06> History of Present Illness Chief Complaint: Flank Pain Narrative Narrative: 73-year-old male with past medical history of HLD, kidney stones states has had intermittent left flank pain over the last 5 days. Sometimes it feels like a dull ache sometimes will be a sharper pain. He took 1 hydrocodone had on hand earlier this week. Now he is just using ibuprofen as needed. He denies fever or chills. No nausea or vomiting. He has no dysuria hematuria or frequency. He has no abdominal pain and he states he had a bowel movement a few days ago. He has a history of a right obstructive kidney stone and had a ureteral stent with Dr. Douglass in summer 2023. PFS <LYNN Cleaning - Last Filed: 06/27/24 18:06> [facility] Medical History Seizures Gout Hyperlipidemia Glaucoma Diverticulitis Home Medications ?Medication ?Instructions ?Recorded ?Last Taken ?Type allopurinol 100 mg tablet 100 mg PO DAILYCM gout 01/1212/26/20 22:00 History atorvastatin 20 mg tablet 20 mg PO QHS cholesterol 12/26/20 22:00 History brimonidine 0.2 % eye drops 1 drp EACH EYE DAILY glauc linden 12/27/20 12/27/20 08:00 History dorzolamide 2 % eye drops 1 drp EACH EYE DAILY glaucom a 12/27/20 12/27/20 08:00 History ciprofloxacin HCl 500 mg tablet 500 mg PO BID #20 tabs 12/28/20 Unknown Rx metronidazole 500 mg tablet 500 mg PO TID #30 tabs 01/09 Unknown Rx cephalexin 500 mg capsule 500 mg PO Q6 #40 CAPSULES Unknown Rx hydrocodone-acetaminophen 5-325mg 1 tab PO Q6H PRN PRN Pain 3 days 12/04/23 Unknown Rx 5mg-325mg #10 TABLETS ibuprofen 600 mg tablet 600 mg PO Q8H PRN PRN pain # 20 12/04/23 Unknown Rx TABLETS ondansetron 4 mg disintegrating 4 mg PO Q6H PRN nausea and 06/27/24 Unknown Rx tablet vomiting #12 tabs tamsulosin 0.4 mg capsule (Flomax) 0.4 mg PO DAILY 14 days #14 caps 06/27/24 Unknown Rx Allergy/AdvReac Type Severity Reaction Status Date / Time No Known Allergies Allergy Verified 06/27/24 16:11 Surgical History H/O parathyroidectomy Hx of bilateral hip replacements Social History (Updated 12/04/23 @ 09:[address] Manuel Bernard MD) household members: spouse Smoking Status: Never smoker alcohol intake: current alcohol intake frequency: holidays/special occasions only substance use type: does not use ROS <LYNN Cleaning - Last Filed: 06/27/24 18:06> ROS ED ROS Narrative Constitutional: Negative for fever, chills, malaise. CVS: Negative for chest pain. Respiratory: Negative for shortness of breath, cough. GI: Negative for abdominal pain, nausea, vomiting, diarrhea. : Negative for dysuria, hematuria or frequency. EXAM <LYNN Cleaning - Last Filed: 06/27/24 18:06> Physical Exam Narrative Exam Narrative: CONST: Patient sitting in no acute distress. EYES: Normal inspection. NECK: Normal inspection. RESP: No respiratory distress, CTAB. CVS: Regular rate and rhythm, no murmur, no gallop. ABD: Soft and nontender, no guarding or rebound, nondistended. Back: Normal inspection, mild left CVA tenderness. SKIN: Color normal, no rash, warm, dry, intact. EXTREMITIES: Normal appearance, no pedal edema. NEURO: Alert and answering questions appropriately. PSYCH: Normal affect. Const Vital Signs: 06/27/24 16:08 Temperature 98.1 F Temperature Source Temporal Pulse Rate 86 Respiratory Rate 15 Blood Pressure 146/79 H Blood Pressure Mean 101 Pulse Ox 99 Oxygen Delivery Method Room Air <Dr. Cash Sher MD - Last Filed: 06/27/24 17:42> Physical Exam Const Vital Signs: 06/27/24 16:08 Temperature 98.1 F Temperature Source Temporal Pulse Rate 86 Respiratory Rate 15 Blood Pressure 146/79 H Blood Pressure Mean 101 Pulse Ox 99 Oxygen Delivery Method Room Air MDM <LYNN Cleaning - Last Filed: 06/27/24 18:06> MDM MDM Narrative Medical decision making narrative: Differential includes but not limited to kidney stone, pyelonephritis, musculoskeletal pain 73-year-old male presents with few days of left flank pain. He has a history of kidney stones. He has not had fever, vomiting, or urinary symptoms he appears well and nontoxic. Afebrile and hemodynamically stable. On initial exam he has left CVA tenderness which completely resolved after Toradol. CBC shows normal white count of 7.6. Hemoglobin of 12.3. Electrolytes are within normal limits. Creatinine slightly elevated at 1.28 (previously 1.07). Urinalysis has RBCs but no infection. CT scan shows 6 mm obstructive stone at the left UVJ with mild hydroureteronephrosis. Since patient's pain is adequately controlled and he does not have significant VERO or infection he is appropriate for outpatient management. He states he has a whole bottle of hydrocodone from his prior kidney stone that he is only taken 1 pill out of so he will take this and ibuprofen for his pain. I prescribed Zofran and Flomax. He should call his urologist Dr. Douglass tomorrow for appointment. Return precautions discussed. He was discharged in stable condition I have personally performed a face to face assessment of the patient and have reviewed the JUNG Note. I performed a substantive portion of the visit including all aspects of the following. My zaidi findings include: History is [73-year-old male intermittent left flank pain for 3 to 5 days. D enies any dysuria. No fever. Prior history of kidney stone.] Exam is [well-appearing 73-year-old male. Received Toradol and states his pain is resolved. Vital signs are stable afebrile. He does not look septic or toxic is in no acute distress. H EENT exam pupils round reactive light. Moist mucous membranes. Lungs clear. Heart regular rhythm no murmur. Chest wall and ribs are nontender. Abdomen is soft, nontender, nondistended, normal bowel sounds without peritoneal signs. There is no left-sided tenderness whatsoever. No hernia or mass. No pulsatile mass. Back is nontender. No CVA tenderness. Moving all 4 extremities. Nontender no edema. Normal strength. He is awake and alert. No focal motor deficits.] Medical Decision Making [73-year-old male left flank pain possible kidney stone rule out UTI versus other etiologies.] Other additions or changes: [None] Lab Data Labs: Laboratory Results - last 24 hr 06/27/24 17:00 WBC 7.6 RBC 3.93 L Hgb 12.3 L Hct 36.3 L MCV 92.4 MCH 31.3 MCHC 33.9 RDW Std Deviation 42.4 RDW Coeff of Kranthi 12.5 Plt Count 143 L MPV 10.6 Immature Gran % (Auto) 0.300 Neut % (Auto) 66.9 Lymph % (Auto) 21.9 [place] % (Auto) 8.7 Eos % (Auto) 1.7 Baso % (Auto) 0.5 Absolute Neuts (auto) 5.1 Absolute Lymphs (auto) 1.66 Nucleated RBC % 0 Sodium 140 Potassium 3.8 Chloride 106 Carbon Dioxide 22.2 Anion Gap 12 BUN 19 Creatinine 1.28 H Estim Creat Clear Calc 53.74 Est GFR (MDRD) Non-Af 59 L BUN/Creatinine Ratio 14.9 Glucose 84 Calcium 9.0 Urine Color Yellow Urine Clarity Clear Urine pH 6.0 Ur Specific [place] 1.015 Urine Protein 30 H Urine Glucose (UA) Normal Urine Ketones 5 H Urine Occult Blood 250 H Urine Nitrite Negative Urine Bilirubin Negative Urine Urobilinogen Normal Ur Leukocyte Esterase 25 H Urine RBC 5-10 SEEN Urine WBC 0-5 SEEN Ur Squamous Epith Cells 0 SEEN Urine Bacteria 0 SEEN Urine Mucus 0 SEEN Radiography Diagnostic Testing: Clinical Impression(s) from Imaging Studies Abdomen/Pelvis CT 06/27/24 16:40 IMPRESSION: Left-sided obstructive uropathy as above. One or more dose reduction techniques were used (e.g., Automated exposure control, adjustment of the mA and/or kV according to patient size, use of iterative reconstruction technique). Reading Location: [facility] <Dr. Cash Sher MD - Last Filed: 06/27/24 17:42> [facility] MDM Narrative Medical decision making narrative: I have personally performed a face to face assessment of the patient and have reviewed the JUGN Note. I performed a substantive portion of the visit including all aspects of the following. My zaidi findings include: History is [73-year-old male intermittent left flank pain for 3 to 5 days. Denies any dysuria. No fever. Prior history of kidney stone.] Exam is [well-appearing 73-year-old male. Received Toradol and states his pain is resolved. Vital signs are stable afebrile. He does not look septic or toxic is in no acute distress. H EENT exam pupils round reactive light. Moist mucous membranes. Lungs clear. Heart regular rhythm no murmur. Chest wall and ribs are nontender. Abdomen is soft, nontender, nondistended, normal bowel sounds without peritoneal signs. There is no left-sided tenderness whatsoever. No hernia or mass. No pulsatile mass. Back is nontender. No CVA tenderness. Moving all 4 extremities. Nontender no edema. Normal strength. He is awake and alert. No focal motor deficits.] Medical Decision Making [73-year-old male left flank pain possible kidney stone rule out UTI versus other etiologies.] Other additions or changes: [None] History & Record Review Discussion w/independent historian: Patient Lab Data Attestation: I reviewed the patient's lab results. Lab results narrative: CBC shows a white count of 7.6. H&H 12.3 and 36 which is his baseline. Platelets 143. Labs: Laboratory Results - last 24 hr 06/27/24 17:00 WBC 7.6 RBC 3.93 L Hgb 12.3 L Hct 36.3 L MCV 92.4 MCH 31.3 MCHC 33.9 RDW Std Deviation 42.4 RDW Coeff of Kranthi 12.5 Plt Count 143 L MPV 10.6 Immature Gran % (Auto) 0.300 Neut % (Auto) 66.9 Lymph % (Auto) 21.9 [place] % (Auto) 8.7 Eos % (Auto) 1.7 Baso % (Auto) 0.5 Absolute Neuts (auto) 5.1 Absolute Lymphs (auto) 1.66 Nucleated RBC % 0 Sodium 140 Potassium 3.8 Chloride 106 Carbon Dioxide 22.2 Anion Gap 12 BUN 19 Creatinine 1.28 H Estim Creat Clear Calc 53.74 Est GFR (MDRD) Non-Af 59 L BUN/Creatinine Ratio 14.9 Glucose 84 Calcium 9.0 Urine Color Yellow Urine Clarity Clear Urine pH 6.0 Ur Specific [place] 1.015 Urine Protein 30 H Urine Glucose (UA) Normal Urine Ketones 5 H Urine Occult Blood 250 H Urine Nitrite Negative Urine Bilirubin Negative Urine Urobilinogen Normal Ur Leukocyte Esterase 25 H Urine RBC 5-10 SEEN Urine WBC 0-5 SEEN Ur Squamous Epith Cells 0 SEEN Urine Bacteria 0 SEEN Urine Mucus 0 SEEN Radiography Diagnostic Testing: Clinical Impression(s) from Imaging Studies Abdomen/Pelvis CT 06/27/24 16:40 IMPRESSION: Left-sided obstructive uropathy as above. One or more dose reduction techniques were used (e.g., Automated exposure control, adjustment of the mA and/or kV according to patient size, use of iterative reconstruction technique). Reading Location: [facility] Discharge Plan Triage Chief Complaint: Flank Pain ED Midlevel Provider: Stephanie Klein ED Provider: Cash Sher Dx/Rx/DC Orders Clinical Impression: Kidney stone on left side, Hydronephrosis of left kidney Instructions: ED Kidney Stone with Pain Prescriptions: New tamsulosin [Flomax] 0.4 mg capsule 0.4 mg PO DAILY 14 Days Qty: 14 0RF ondansetron 4 mg tablet,disintegrating 4 mg PO Q6H PRN (Reason: nausea and vomiting) Qty: 12 0RF No Action atorvastatin 20 MG tablet 20 mg PO QHS allopurinol 100 MG tablet 100 mg PO DAILYCM brimonidine 0.2 % drops 1 drp EACH EYE DAILY Patient Comments: 1 drop in both eyes twice a day dorzolamide 2 % drops 1 drp EACH EYE DAILY metronidazole 500 mg tablet 500 mg PO TID Qty: 30 0RF ciprofloxacin HCl 500 mg tablet 500 mg PO BID Qty: 20 0RF cephalexin 500 mg capsule 500 mg PO Q6 Qty: 40 0RF hydrocodone-acetaminophen 5-325 mg tablet 1 tab PO Q6H PRN PRN (Reason: Pain) 3 Days Qty: 10 0RF ibuprofen 600 mg tablet 600 mg PO Q8H PRN PRN (Reason: pain) Qty: 20 0RF Primary Care Provider: Janet Dominguez Referrals: Shane Douglass MD [Med Staff - Active Staff] - Janet Dominguez MD [Primary Care Provider] - Activity Restrictions/Additional Instructions: You have a left sided kidney stone that is 6 mm in the ureter right before your bladder. You said you had hydrocodone left at home you can take every 6 hours as needed. You can also take ibuprofen every 6 hours. I prescribed nausea meds and Flomax. There is no infection so no need for antibiotics. Call Dr. Douglass tomorrow for an appointment. Return to the emergency room if you develop a fever, unmanageable pain, or are unable to urinate. Print Language: Mohawk Disposition Disposition: Home, Self Care
[2024-06-27] MEDS: Ketorolac 15 MG/ML Vial IV (17:02)
[2024-06-27 17:20] LABS: Bacteria 0 SEEN /hpf (None Seen); Mucous, Urine 0 SEEN /hpf (<or=2+); Squamous Epithelial Cells - UA 0 SEEN /hpf (0-5)
[2024-06-27 17:22] LABS: Absolute Lymphocyte Count 1.66 X10^3/uL (0.83-4.51); Absolute Neutrophil Count 5.1 X10^3/uL (2.0-7.7); Basophil# 0.04 X10^3/uL; Basophil% 0.5 % (0-1); Eosinophil# 0.13 X10^3/uL; Eosinophils% 1.7 % (0-5); Hematocrit 36.3 % (40-54); Hemoglobin 12.3 g/dL (13.0-16.5); Lymphocyte # 1.66 X10^3/ul (0.83-4.51); Lymphocyte % 21.9 % (19-41); Mean Corp Hgb Conc 33.9 g/dL (32-36); Mean Corpuscular Hgb 31.3 pg (27.0-32.0); Mean Corpuscular Volume 92.4 fL (80-94); Mean Platelet Vol. 10.6 fl (6.2-12.0); Monocyte# 0.66 X10^3/uL; Monocyte% 8.7 % (0-10); NRBC Flagged by Analyzer 0 % (0-5); Neutrophil # 5.07 X10^3/uL (2.7-7.7); Neutrophil % 66.9 % (47-70); Platelet Count 143 K/mm3 (150-450); RBC Distribution Width CV 12.5 % (11.6-14.6); RBC Distribution Width SD 42.4 fl (35.1-43.9); Red Blood Count 3.93 M/mm3 (4.6-6.2); White Blood Count 7.6 K/mm3 (4.4-11.0)
[2024-06-27 17:23] LABS: Color, Urine Yellow (Yellow); Glucose, Dipstick Normal (Normal); Ketone-Dipstick 5 mg/dl (Negative); Leukocyte Esterase-Dipstick 25 /ul (Negative); Nitrite-Dipstick Negative (Negative); Occult Blood-Urine 250 /ul (Negative); Protein-Dipstick 30 mg/dl (Negative); Specific Gravity, Urine 1.015 (1.002-1.030); Urine Bilirubin Dipstick Negative (Negative); Urine Clarity Clear (Clear); Urine Urobilinogen Normal (Normal)
[2024-06-27 17:47] LABS: Anion Gap 12 (5-15); BUN 19 mg/dL (4-19); BUN/Creat Ratio 14.9 RATIO (10-20); Carbon Dioxide 22.2 mmol/L (21.0-32.0); Chloride 106 mmol/L (98-108); Creatinine, Serum 1.28 mg/dL (0.70-1.20); EST Glomerular Filtration Rate 59 (>60); Estimated Creatinine Clearance 53.74 ml/min (50-250); Glucose 84 mg/dL (70-99); Potassium 3.8 mmol/L (3.3-5.1); Sodium Level 140 mmol/L (133-145)
[2024-06-27 17:55] LABS: Red Blood Cells-Urine 5-10 SEEN /hpf (0-5); White Blood Cells 0-5 SEEN /hpf (0-5)
== END 2024-06-27 18:33 | disposition home or self-care (01) ==
PROVIDERS: Physician Assistant; Emergency Provider Emergency Medicine; PCP Internal Medicine; Visit Provider Emergency Medicine
DX: N13.2 Hydronephrosis with renal and ureteral calculous obstruction (principal); E78.5 Hyperlipidemia, unspecified; M10.9 Gout, unspecified; H40.9 Unspecified glaucoma; Z87.442 Personal history of urinary calculi; Z79.899 Other long term (current) drug therapy
CPT/HCPCS: 74176; 80048; 81001; 85025; 96374; 99283; A4216

== ENCOUNTER 2024-06-30 13:37 | Day surgery (SDC) | payer MEDICARE, SELFPAY ==
[2024-06-30] VITALS (7 sets, daily range): BP systolic 133–139; BP diastolic 88–101; PULSE 66–82; RESP 12–18; TEMP 36.2–37.2; O2SAT 97–99; BMI 20.7
--- NOTE | 2024-06-30 13:45 | RAD_ITS ---
EXAM: XR Abdomen, 1 View CLINICAL INDICATION: KIDNEY STONE TECHNIQUE: Frontal supine view of the abdomen/pelvis. COMPARISON: No relevant prior studies available. FINDINGS: GASTROINTESTINAL TRACT: Unremarkable. No dilation. ORGANS: Stool burden limits evaluation for subtle calculi. Possible left punctate left nephrolithiasis. BONES/JOINTS: Unremarkable. No acute fracture. RAD/Abdomen Single View IMPRESSION: Stool burden limits evaluation for subtle calculi. Possible left punctate left nephrolithiasis. Reading Location: [facility]
--- NOTE | 2024-06-30 14:00 | PCM.PRE.AN2 ---
ASA Classification* ASA Classification ASA Classification: 2 Assessment & Plan Anesthesia* Anesthesia Assessment Anesthesia Assessment: Discussed sedation and/or anesthesia options, risks, benefits, and alternatives with patient/parents/legal guardian/POA. Questions invited. The patient/parents/legal guardian/POA seems to understand and agrees to proceed with anesthesia plan. Reviewed the physical assessment, medical history, allergy history and patient home medications list prior to surgery/procedure/anesthetic and documented any changes. Performed airway and anesthesia risk assessments. Anesthesia Type Anesthesia Type: General Anesthesia Focused Assessment* Airway Assessment Mouth opens: >3 cm Mallampati Score: II Focused Labs Anesthesia Preop lab: CBC WBC 7.6 K/mm3 (4.4-11.0) 06/27/24 17:06/27/24 RBC 3.93 M/mm3 (4.6-6.2) L 06/27/24 17:00 06/27/24 Hgb 12.3 g/dL (13.0-16.5) L 06/27/24 17:06/27/24 Hct 36.3 % (40-54) L 06/27/24 17:00 06/27/24 Plt Count 143 K/mm3 (150-450) L 06/27/24 17:00 06/27/24 CHEMISTRY Potassium 3.8 mmol/L (3.3-5.1) 06/27/24 17:00 06/27/24 Sodium 140 mmol/L (133-145) 06/27/24 17:06/27/24 BUN 19 mg/dL (4-19) 06/27/24 17:06/27/24 Creatinine 1.28 mg/dL (0.70-1.20) H 06/27/24 17:00 06/27/24 Glucose 84 mg/dL (70-99) 06/27/24 17:06/27/24 COAG Pre-Assessment Diagnosis/Proposed Procedure Planned Operative Procedure(s): ESWL left Anesthesia History 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 When Was Last Pacemaker Check QUESTION #4 FULL TEXT: You/Your Family Experience fever (hyperthermia) with Anesthesia Last Oral Intake Last Oral intake: Last Oral Intake NPO since Meds taken in AM with sips of water? Meds patient instructed to take am of surgery PONV PONV - plastic machine operator: PONV - plastic machine operator Female HX of Motion Sickness HX of N/V After Surgery Non-Smoker Duration of Surgery greater than 60 minutes Number of Risk Factors PONV Score Height & Weight Height & Weight: Anesthesia: Height & Weight Height 5 ft 7 in 06/27/24 16:08 Respiratory Assessment Respiratory Assessment - plastic machine operator: Respiratory Tract Infection Hx - plastic machine operator Hx Respiratory Tract Infection STOP Sleep Apnea STOP Sleep Apnea - plastic machine operator: STOP Sleep Apnea - plastic machine operator Hx Hypertension No 12/27/20 22:47 Hx Sleep Apnea No 12/27/20 22:47 CPAP BIPAP Do you snore loudly (louder than talking or can be heard Do you often feel tired/ fatigued/ sleepy during daytime? Has anyone observed you stop breathing during sleep? STOP Results QUESTION #5 FULL TEXT : Do you snore loudly (louder than talking or can be heard through closed doors)? 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 Specify any problems Hx of Preganancy in last 3 Months Nurse Filling Out Transfusion & Questions: Date: Time: Patient unable to answer at this time (ie. confused, unrespo /Reproduction History /Reproductive History - plastic machine operator: /Reproductive Hx- plastic machine operator Hx Now Gestational Age (in weeks): EDC: Hx Hx Para Hx Section SAB Active Medications Active Medications: Current Medications Generic Name Dose Route Start Last Admin Trade Name Freq PRN Reason Stop Dose Admin Cefazolin Sodium 2 gm/ N/A 20 mls @ 400 mls/hr 06/30/24 15:45 IV 06/30/24 15:47 PREOP ONE PFSH Medical History Seizures Gout Hyperlipidemia Glaucoma Diverticulitis Home Medications ?Medication ?Instructions ?Recorded ?Last Taken ?Type allopurinol 100 mg tablet 100 mg PO DAILYCM gout 01/12/14 12/26/20 22:00 History atorvastatin 20 mg tablet 20 mg PO QHS cholesterol 01/12/14 12/26/20 22:00 History brimonidine 0.2 % eye drops 1 drp EACH EYE DAILY glaucoma 12/27/20 12/27/20 08:00 History dorzolamide 2 % eye drops 1 drp EACH EYE DAILY glaucoma 12/27/20 12/27/20 08:00 History ciprofloxacin HCl 500 mg tablet 500 mg PO BID #20 tabs 12/28/20 Unknown Rx metronidazole 500 mg tablet 500 mg PO TID #30 tabs 12/28/20 Unknown Rx cephalexin 500 mg capsule 500 mg PO Q6 #40 CAPSULES 12/04/23 Unknown Rx hydrocodone-acetaminophen 5-325mg 1 tab PO Q6H PRN PRN Pain 3 days 12/04/23 Unknown Rx 5mg-325mg #10 TABLETS ibuprofen 600 mg tablet 600 mg PO Q8H PRN PRN pain #20 12/04/23 Unknown Rx TABLETS ondansetron 4 mg disintegrating 4 mg PO Q6H PRN nausea and 06/27/24 Unknown Rx tablet vomiting #12 tabs tamsulosin 0.4 mg capsule (Flomax) 0.4 mg PO DAILY 14 days #14 caps 06/27/24 Unknown Rx Allergy/AdvReac Type Severity Reaction Status Date / Time No Known Allergies Allergy Verified 06/27/24 16:11 Surgical History H/O parathyroidectomy Hx of bilateral hip replacements Social History household members: spouse Smoking Status: Never smoker alcohol intake: current alcohol intake frequency: holidays/special occasions only substance use type: does not use Review of Systems (Anesthesia) ROS Narrative System reviewed and no additional complaints, except as documented.
[2024-06-30] MEDS: 0.9% Normal Saline (1000mL) 1,000 ML 15 ML IV (14:43)
--- NOTE | 2024-06-30 16:09 | HP.PCM_ITS ---
HPI - General General Date of Service: 06/30/24 Chief Complaint: Stone in ureter HPI Narrative DANIELLA CLEMONS, is a 73 M who presents for shockwave lithotripsy for his distal stone by the treat the stone with shockwave lithotripsy possible stent COUNT INCLUDES THE [facility] Medical History (Updated 06/30/24 @ 14:25 by Gen Hagen) Dermatitis Kidney stone on right side Seizures Gout Hyperlipidemia Glaucoma Diverticulitis Home Medications ?Medication ?Instructions ?Recorded ?Last Taken ?Type allopurinol 100 mg tablet 100 mg PO DAILYCM gout 01/1206/29/24 History atorvastatin 20 mg tablet 20 mg PO QHS cholesterol 06/29/24 History brimonidine 0.2 % eye drops 1 drp EACH EYE DAILY glauc linden 12/27/20 06/30/24 History dorzolamide 2 % eye drops 1 drp EACH EYE DAILY glaucom a 12/27/20 06/30/24 History ibuprofen 600 mg tablet 600 mg PO Q8H PRN PRN pain # 20 12/04/23 06/28/24 Rx TABLETS ondansetron 4 mg disintegrating 4 mg PO Q6H PRN nausea and 06/27/24 06/28/24 Rx tablet vomiting #12 tabs tamsulosin 0.4 mg capsule (Flomax) 0.4 mg PO DAILY 14 days #14 caps 06/27/24 06/29/24 Rx Allergy/AdvReac Type Severity Reaction Status Date / Time No Known Allergies Allergy Verified 06/30/24 14:15 Surgical History (Updated 06/30/24 @ 14:25 by Gen Hagen) H/O parathyroidectomy Hx of bilateral hip replacements Social History (Updated 06/30/24 @ 14:30 by Gen Hagen) adopted: No household members: spouse housing: house number of children: 3 current occupational status: retired Smoking Status: Never smoker alcohol intake: current alcohol intake frequency: holidays/special occasions only substance use type: does not use Vital Signs Vital Signs Vital Signs: 06/30/24 14:30 06/30/24 14:30 Temperature 99.0 F Temperature Source Temporal Pulse Rate 82 Respiratory Rate 16 Respiratory Pattern Normal Blood Pressure 139/99 H Blood Pressure Mean 112 Blood Pressure Source Monitor Blood Pressure Position Semi-Fowlers Blood Pressure Location Left Arm Pulse Ox 97 Oxygen Delivery Method Room Air Weight Weight: 60 kg Body Mass Index (BMI) 20.7 Results Imaging Radiology Impression KUB X-Ray 06/30/24 13:45 IMPRESSION: Stool burden limits evaluation for subtle calculi. Possible left punctate left nephrolithiasis. Reading [facility]
--- NOTE | 2024-06-30 16:09 | DCINST_ITS ---
Discharge Instructions Diet Discharge Diet: No restrictions DC O2, CPAP, BIPAP needs Home O2 Discharge instructions: No Dressing / Incision Discharge Activity: Return to Normal Activity and May Not Drive (while taking narcotic pain medications.) Dressing / Incision Call your doctor if you observe: Fever of 101 or Higher Follow Up Care Please Follow Up With: Shane Douglass MD When: Call [phone] for an appointment Test Results: Test results from this visit will be discussed in further detail at your follow- up appointment, if applicable. Discharge Plan Admission Primary Reason for Your Visit: kidney stone Attending Provider: Shane Douglass Primary Care Provider: Janet Dominguez Instructions Print Language: Kiswahili Discharge Orders/Prescriptions Prescriptions: Continued atorvastatin 20 MG tablet 20 mg PO QHS allopurinol 100 MG tablet 100 mg PO DAILYCM brimonidine 0.2 % drops 1 drp EACH EYE DAILY Patient Comments: 1 drop in both eyes twice a day dorzolamide 2 % drops 1 drp EACH EYE DAILY tamsulosin [Flomax] 0.4 mg capsule 0.4 mg PO DAILY 14 Days Qty: 14 0RF ondansetron 4 mg tablet,disintegrating 4 mg PO Q6H PRN (Reason: nausea and vomiting) Qty: 12 0RF ibuprofen 600 mg tablet 600 mg PO Q8H PRN PRN (Reason: pain) Qty: 20 0RF Referrals / Follow Up: Shane Douglass MD [Med Staff - Active Staff] - Janet Dominguez MD [Primary Care Provider] - Disposition Disposition (needs filled in before D/C Order can be placed): Home, Self Care
[2024-06-30] MEDS: Cefazolin 2 GM in Syringe IV (16:22)
--- NOTE | 2024-06-30 17:15 | OP.PCM_ITS ---
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 In the preoperative area and x-ray was done to confirm the location of the stone. The x-ray was reviewed and the stone location was reviewed. In the preoperative setting I spoke with the patient regarding the treatment of the stone how the treatment would be conducted and the expectations after surgery. The patient understands there is a risk of bleeding and i nfection. Also discussed the very rare risk of hematoma or damage to the kidney. We also discussed the risk that the shockwave machine will fail to break the stone adequately and that the patient may need other surgical procedures. I also discussed the possibility that the patient may need a stent after the procedure. After reviewing the procedure with the patient, the patient is signed the consent form all the patient's questions were addressed and was taken back to the operating room for treatment of a kidney stone. Patient was taken back to the operating room, the patient was identified by the nursing staff, I identified the side of the treatment and the patient side of treatment had been marked by my initials. The patient underwent general anesthetic and was placed supine on the lithotripter table. I then used fluoroscopy to identify the stone on the left ureter distally. I then positioned the patient under the lithotripter and I used triangulation technique to identify the location of the stone and then I made sure that the stone was engaged in the F2 focal point of F2 Donier lithoprior machine. Once the patient was positioned appropriately and the stone was identified and placed in the F2 focal point of the lithotripter machine I then proceeded with shockwave lithotripsy. In the beginning the shockwave was delivered at a rate of 90 shocks per minute, anesthesia monitored the EKG for any ectopy. The power was slowly increased to 5 kV and subsequently at the 7 kV. I then proceeded with the treatment with shock wave therapy and around during the treatment to make sure the stone stayed in the F2 focal point during the entire treatment and after 3000 shockwaves were delivered to the stone under fluoroscopic guidance the treatment was completed. The patient was given instructions to call the office to make an a follow-up appointment with an xray to evaluate the success of the treatment, pateint understands that its possible the stones may need another procedure.At this point the patient's anesthetic was reversed patient was extubated and taken back to the PACU in stable condition. Surgical Findings: Stone in distal left ureter Complications Complications: No Admit VTE Documentation VTE Present on Admission: No VTE Mechan Device Prophylaxis: SCD's VTE Pharm Prophylaxis ordered?: No
--- NOTE | 2024-06-30 17:25 | PCM.POST.ANE ---
Anesthesia: Postop Eval I Current Vital Signs Temperature: 97.3 F Pulse Rate: 78 Blood Pressure: 137/95 Respiratory Rate: 16 Pulse Ox: 99 Oxygen Delivery Method: Room Air Assessment Airway patent: Yes Spontaneous unlabored respirations: Yes Mental status: Awake and Calm nausea: No Vomiting: No Anesthesia Complication: No Fluid Hydration Crystalloid volume administer (ml): 700 Total IV fluid infused: 700 Progress Note Anesthesia document: Postop Eval 1 completed: Yes
--- NOTE | 2024-06-30 17:29 | PCM.POSTANE2 ---
Anesthesia Postop Eval I Sum Postop Eval Completion status Anesthesia document: Postop Eval 1 completed: Yes Anesthesia Postop Eval I Summary Anesthesia Postop Eval I Summary: Anesthesia Postop Eval I: Assessment Summary Airway patent Yes 06/30/24 17:26 Spontaneous unlabored Yes 06/30/24 17:26 respirations Mental status Awake,Calm 06/30/24 17:26 nausea No 06/30/24 17:26 Vomiting No 06/30/24 17:26 Anesthesia Postop Eval I: Fluid Summary Crystalloid volume administer 700 06/30/24 17:26 (ml) Colloids volume administered ( ml) Blood Product volume administered (ml) Total IV fluid infused 700 06/30/24 17:26 Anesthesia Postop Eval I: Summary Notes Anesthesia Complication No 06/30/24 17:26 Anesthesia Complication Comment: Post-operative progress note Anesthesia: Postop Eval II Evaluation Mental status: Awake Pain Level: 0 nausea: No Vomiting: No
== END 2024-06-30 18:00 | disposition home or self-care (01) ==
LOC: SDC 13:38 → AC 13:39
PROVIDERS: PCP Internal Medicine; Referring Provider Urology; Visit Provider Urology
PROC: (CPT 50590; principal; 2024-06-30 15:35)
DX: N20.2 Calculus of kidney with calculus of ureter (principal); E78.5 Hyperlipidemia, unspecified; Z79.899 Other long term (current) drug therapy
CPT/HCPCS: 50590; 00873; 74018; J2405

== ENCOUNTER → 2024-10-06 | Outpatient (CLI) | payer MEDICARE, SELFPAY ==
[2024-10-06 09:53] LABS: ALB/GLOB Ratio 1.9 RATIO (0.9-2.4); AST(SGOT) 25 U/L (<=37); Alanine Aminotransfer ALT/SGPT 21 U/L (<=46); Albumin, Serum 4.5 g/dL (3.4-4.8); Alkaline Phosphatase 71 U/L (40-129); Anion Gap 10 (5-15); BUN 19 mg/dL (4-19); BUN/Creat Ratio 17.6 RATIO (10-20); Calcium,Total 9.1 mg/dL (7.6-11.0); Carbon Dioxide 23.3 mmol/L (21.0-32.0); Chloride 104 mmol/L (98-108); Creatinine, Serum 1.05 mg/dL (0.70-1.20); EST Glomerular Filtration Rate 74 (>60); Globulin 2.3 g/dL (2.2-4.2); Glucose 108 mg/dL (70-99); Magnesium 2.2 mg/dL (1.5-2.2); Phosphorus 3.2 mg/dL (2.7-4.5); Potassium 4.5 mmol/L (3.3-5.1); Protein, Total 6.8 g/dL (5.9-8.4); Sodium Level 137 mmol/L (133-145); Total Bilirubin 0.88 mg/dL (0.00-1.30)
== END | disposition home or self-care (01) ==
LOC: LAB 08:16
PROVIDERS: PCP Internal Medicine; Referring Provider Urology; Visit Provider Urology
DX: N20.0 Calculus of kidney (principal)
CPT/HCPCS: 36415; 80053; 83735; 84100